=== PATIENT | male | born 1995 | race Asian ===

== ENCOUNTER 2017-06-15 16:12 | Emergency (ER) | payer OTHER ==
[~2017-06-15] VITALS: Ht 170.2 cm; Wt 71.6 kg
[2017-06-15] MEDS ORDERED: MUCI600T37 PO (16:25)
[2017-06-15] MEDS ORDERED: ACET650S3 PR (16:25)
[2017-06-15] MEDS ORDERED: DOXY100C37 PO (17:41)
[2017-06-15] MEDS ORDERED: ALBU17IN INH (17:41)
[2017-06-15] MEDS ORDERED: ACETAMINOPHEN 325 MG TAB PO ONE (18:00)
--- NOTE | 2017-06-15 18:15 | REP ---
HISTORY: Cough. COMPARISON: None. There is an abnormal patchy right upper lobe opacity. The heart is not enlarged. The pleural angles are sharp. The osseous structures are normal. IMPRESSION: Right upper lobe pneumonia. Signed by Len Goldman DO 06/16/2017 10:13 A
[2017-06-15 18:30] VITALS: BP 112/63
== END 2017-06-15 18:39 | disposition home or self-care (01) ==
LOC: M ED 16:12
DX: J18.1 Lobar pneumonia, unspecified organism (principal)

== ENCOUNTER 2018-01-15 22:42 | Emergency (ER) | payer OTHER ==
[2018-01-16] MEDS: IBUPROFEN 800 MG TAB PO (00:10)
== END 2018-01-16 00:23 | disposition home or self-care (01) ==
LOC: M ED 01-16 00:23
DX: S62.356A Nondisplaced fracture of shaft of fifth metacarpal bone, right hand, initial encounter for closed fracture (principal); S60.416A Abrasion of right little finger, initial encounter; W23.0XXA Caught, crushed, jammed, or pinched between moving objects, initial encounter; Y92.018 Other place in single-family (private) house as the place of occurrence of the external cause
CPT/HCPCS: 73130

== ENCOUNTER 2018-04-02 23:00 | Emergency (ER) | payer OTHER ==
[2018-04-02] MEDS: IBUPROFEN 600 MG TAB PO (23:27)
== END 2018-04-03 01:07 | disposition home or self-care (01) ==
LOC: M ED 04-03 01:07
DX: S42.434A Nondisplaced fracture (avulsion) of lateral epicondyle of right humerus, initial encounter for closed fracture (principal); W21.89XA Striking against or struck by other sports equipment, initial encounter; Y92.39 Other specified sports and athletic area as the place of occurrence of the external cause; Y93.9 Activity, unspecified; Y99.9 Unspecified external cause status
CPT/HCPCS: 73080